=== PATIENT | male | born 1990 | race Caucasian/White ===

== ENCOUNTER 2016-10-27 15:17 | Emergency (ER) | payer MEDICAID, OTHER ==
[~2016-10-27] VITALS: Ht 188 cm; Wt 113.6 kg
[2016-10-27 16:50] VITALS: BP 135/98
== END 2016-10-27 16:51 | disposition home or self-care (01) ==
LOC: M ED 15:17
DX: F43.0 Acute stress reaction (principal); F99 Mental disorder, not otherwise specified; Z88.1 Allergy status to other antibiotic agents

== ENCOUNTER 2019-06-30 21:39 | Emergency (ER) | payer MEDICAID, OTHER ==
[~2019-06-30] VITALS: Ht 190.5 cm; Wt 125.8 kg
[2019-06-30] MEDS ORDERED: ONDANSETRON 4MG/2ML VIAL (J2405) IV ONE (22:00)
[2019-06-30] MEDS ORDERED: MORPHINE 4 MG/ML 1ML VIAL/SYRINGE (J2270) IV ONE ×3 (22:00→23:30)
[2019-06-30 22:25] LABS: BASO % 0.3 % (0.0-1.0); EOS # 0.3 10^3/uL (0.0-0.5); EOS % 3.2 % (0.0-3.0); HEMATOCRIT 45.4 % (42.0-52.0); HEMOGLOBIN 15.1 g/dl (13.5-17.5); LYMPH # 3.1 10^3/uL (1.5-5.0); LYMPH % 30.9 % (24.0-44.0); MEAN CORPUSCULAR HEMOGLOBIN 27.6 pg (27.0-33.0); MEAN CORPUSCULAR HGB CONC 33.3 g/dl (32.0-36.5); MONO # 0.8 10^3/uL (0.0-0.8); MONO % 8.3 % (0.0-5.0); NEUTROPHILS # 5.7 10^3/uL (1.5-8.5); NEUTROPHILS % 56.7 % (36.0-66.0); PLATELET COUNT, AUTOMATED 434 10^3/uL (150-450); RED BLOOD COUNT 5.47 10^6/uL (4.30-6.10); WHITE BLOOD COUNT 10.1 10^3/uL (4.0-10.0)
[2019-06-30 22:44] LABS: BLOOD UREA NITROGEN 17 MG/DL (7-18); CALCIUM LEVEL 9.1 MG/DL (8.5-10.1); CARBON DIOXIDE LEVEL 28 MEQ/L (21-32); CHLORIDE LEVEL 110 MEQ/L (98-107); GLOMERULAR FILTRATION RATE > 60.0 (>60); GLUCOSE, FASTING 109 MG/DL (70-100); POTASSIUM SERUM 3.8 MEQ/L (3.5-5.1); SODIUM LEVEL 142 MEQ/L (136-145)
[2019-06-30] MEDS ORDERED: PERC5TAB12 PO (23:29)
[2019-06-30 23:47] VITALS: BP 135/94
== END 2019-06-30 23:45 | disposition home or self-care (01) ==
LOC: M ED 21:39
DX: N47.2 Paraphimosis (principal); F33.9 Major depressive disorder, recurrent, unspecified; Z88.1 Allergy status to other antibiotic agents
CPT/HCPCS: 80048; 85025; 96374; 96375; 96376; 99284; J2270; J2405